=== PATIENT | female | born 1965 | race Two or more races ===

== ENCOUNTER 2017-12-04 10:51 | Emergency (ER) | payer OTHER ==
[~2017-12-04] VITALS: Ht 170.2 cm; Wt 77.1 kg
[~2017-12-04 10:51] MED LIST: KETO10TA2 PO; NORFLEX100MG PO; ZANAFLEX4 MG PO
[2017-12-05] MEDS ORDERED: TENCON 50-3251 EACH (13:36)
== END 2017-12-04 13:16 | disposition home or self-care (01) ==
LOC: ER 10:51
DX: R51 Headache (principal)

== ENCOUNTER 2017-12-05 13:23 | Emergency (ER) | payer OTHER ==
[~2017-12-05] VITALS: Ht 162.6 cm; Wt 71.7 kg
[2017-12-05] MEDS ORDERED: TENCON 50-3251 EACH (13:36)
== END 2017-12-05 16:15 | disposition home or self-care (01) ==
LOC: ER 13:23
DX: G44.209 Tension-type headache, unspecified, not intractable (principal)

== ENCOUNTER 2018-11-24 23:31 | Emergency (ER) | payer OTHER ==
[~2018-11-24] VITALS: Ht 162.6 cm; Wt 77.6 kg
[~2018-11-24 23:31] MED LIST changes: +TENCON 50-3251 EACH
[2018-11-25] MEDS ORDERED: AMOX-CLAV (00:11)
[2018-11-25] MEDS ORDERED: VALTREX (00:12)
[2018-11-25] MEDS ORDERED: NORFLEX100MG PO (01:37)
[2018-11-25] MEDS ORDERED: DICLOFENAC POTA50 MG PO (01:37)
== END 2018-11-25 01:51 | disposition home or self-care (01) ==
LOC: ER 23:31
DX: R20.0 Anesthesia of skin (principal); M62.838 Other muscle spasm

== ENCOUNTER 2019-06-09 08:48 | Outpatient (CLI) | payer OTHER ==
[~2019-06-09 08:48] MED LIST changes: +AMOX-CLAV; +DICLOFENAC POTA50 MG PO; +VALTREX
== END 2019-06-09 09:01 | disposition home or self-care (01) ==
LOC: MRI 08:48
DX: M86.161 Other acute osteomyelitis, right tibia and fibula (principal)
CPT/HCPCS: 73722

== ENCOUNTER 2020-06-14 10:02 | Outpatient (CLI) | payer OTHER | END 2020-06-14 10:23 | disposition home or self-care (01) | LOC: RAD 10:02 | PROVIDERS: ATTEND Physical Medicine & Rehabilitation Pediatric Rehabilitation Medicine | DX: M15.0 Primary generalized (osteo)arthritis (principal); R31.21 Asymptomatic microscopic hematuria; N28.89 Other specified disorders of kidney and ureter | CPT/HCPCS: 73721 ==

== ENCOUNTER 2022-05-15 08:06 | Outpatient (CLI) | payer OTHER | END 2022-05-15 09:26 | disposition home or self-care (01) | LOC: SONOGRAMA 08:06 | PROVIDERS: ATTEND Family Medicine | DX: R31.21 Asymptomatic microscopic hematuria (principal); E04.1 Nontoxic single thyroid nodule; R16.2 Hepatomegaly with splenomegaly, not elsewhere classified ==

== ENCOUNTER 2022-08-26 11:34 | Outpatient (CLI) | payer OTHER | END 2022-08-26 11:42 | disposition home or self-care (01) | LOC: SONOGRAMA 11:34 | PROVIDERS: ATTEND Physical Medicine & Rehabilitation | DX: M25.532 Pain in left wrist (principal); S63.502D Unspecified sprain of left wrist, subsequent encounter; S60.221D Contusion of right hand, subsequent encounter; S60.051D Contusion of right little finger without damage to nail, subsequent encounter ==

== ENCOUNTER 2023-08-31 12:55 | Outpatient (CLI) | payer OTHER | END 2023-08-31 13:09 | disposition home or self-care (01) | LOC: SONOGRAMA 12:55 | PROVIDERS: ATTEND Urology | DX: R31.1 Benign essential microscopic hematuria (principal) ==

== ENCOUNTER 2023-12-15 19:37 | Emergency (ER) | payer OTHER ==
[~2023-12-15] VITALS: Ht 162.6 cm; Wt 74.8 kg
[2023-12-15] MEDS ORDERED: IBERSARTAN (19:47)
[2023-12-15] MEDS ORDERED: CRESTOR40 MG (19:47)
[2023-12-15 19:48] VITALS: BP 115/76; O2SAT 99
[2023-12-15] MEDS ORDERED: KETOROLAC TROMETHAMINE 30 MG VIAL IV ONE (20:15)
[2023-12-15] MEDS ORDERED: CEFTRIAXONE SODIUM 1,000 MG VIAL IV ONE (20:15)
[2023-12-15 20:46] LABS: URINE APPEARANCE Clear; URINE BACTERIA 96.9 uL (0.0-1933); URINE BILIRRUBIN Negative (NEGATIVE); URINE BLOOD Moderate; URINE COLOR Yellow; URINE EPITHELIAL CELLS 4.7 uL (0.0-38.8); URINE GLUCOSE Negative (NEGATIVE); URINE KETONE Negative (NEGATIVE); URINE LEUKOCYTE Moderate; URINE NITRATE Negative; URINE PROTEIN Negative (NEGATIVE); URINE RBC 78.6 uL (0.0-20.8); URINE UROBILINOGEN 0.2 E.U./dl
[2023-12-15 20:46] LABS: HEMATOCRIT 37.6 % (36.0-45.00); HEMOGLOBIN 12.5 g/dL (12.0-15.00); MEAN CORPUSCULAR HEMOGLOBIN 28.3 pg (27.00-32.0); MEAN CORPUSCULAR HGB CONC 33.3 g/dl (32.0-36.0); PLATELET COUNT 219 K/uL (150-450); RED BLOOD COUNT 4.42 M/uL (4.00-6.00); RED CELL DISTRIBUTION WIDTH 13.2 % (11.5-14.5)
[2023-12-15 21:11] LABS: BILIRUBIN TOTAL 0.4 mg/dL (0.3-1.2); CALCIUM 9.3 mg/dL (8.5-10.1); CREATININE SERUM 0.77 mg/dL (0.55-1.02); GFR 76.73; GLOBULINA 3.8 G/DL (2.4-3.5); POTASSIUM 4.46 mEq/L (3.5-5.1); TOTAL PROTEIN 7.8 gm/dL (6.4-8.2)
[2023-12-15] MEDS ORDERED: CIPRO500 MG PO (22:24)
== END 2023-12-15 22:32 | disposition home or self-care (01) ==
LOC: ER 19:38
PROVIDERS: General Practice
DX: N39.0 Urinary tract infection, site not specified (principal); I10 Essential (primary) hypertension

== ENCOUNTER 2023-12-17 12:25 | Outpatient (CLI) | payer OTHER ==
[~2023-12-17 12:25] MED LIST changes: +CIPRO500 MG PO; +CRESTOR40 MG; +IBERSARTAN
== END 2023-12-17 12:47 | disposition home or self-care (01) ==
LOC: SONOGRAMA 12:25
PROVIDERS: ATTEND Physical Medicine & Rehabilitation
DX: M77.12 Lateral epicondylitis, left elbow (principal); M77.02 Medial epicondylitis, left elbow

== ENCOUNTER → 2024-01-12 | Outpatient (CLI) | payer OTHER | END | disposition home or self-care (01) | LOC: SONOGRAMA 07:37 | PROVIDERS: ATTEND Family Medicine | DX: R10.2 Pelvic and perineal pain (principal) ==

== ENCOUNTER 2024-04-06 07:29 | Outpatient (CLI) | payer OTHER | END 2024-04-06 07:35 | disposition home or self-care (01) | LOC: SONOGRAMA 07:29 | PROVIDERS: ATTEND Urology | DX: R31.1 Benign essential microscopic hematuria (principal) ==

== ENCOUNTER 2024-06-13 07:21 | Outpatient (CLI) | payer OTHER | END 2024-06-13 07:35 | disposition home or self-care (01) | LOC: MRI 07:21 | PROVIDERS: ATTEND Specialist | DX: G43.711 Chronic migraine without aura, intractable, with status migrainosus (principal) | CPT/HCPCS: 70551; 72141 ==

== ENCOUNTER 2024-09-22 07:49 | Outpatient (CLI) | payer OTHER | END 2024-09-22 07:56 | disposition home or self-care (01) | LOC: SONOGRAMA 07:49 | PROVIDERS: ATTEND Family Medicine | DX: R07.89 Other chest pain (principal); M25.512 Pain in left shoulder ==

== ENCOUNTER 2024-12-28 07:36 | Outpatient (CLI) | payer OTHER | END 2024-12-28 07:38 | disposition home or self-care (01) | LOC: SONOGRAMA 07:36 | PROVIDERS: ATTEND Internal Medicine Gastroenterology | DX: R16.1 Splenomegaly, not elsewhere classified (principal) ==

== ENCOUNTER 2025-01-08 07:08 | Outpatient (CLI) | payer OTHER | END 2025-01-08 07:16 | disposition home or self-care (01) | LOC: SONOGRAMA 07:08 | PROVIDERS: ATTEND Obstetrics & Gynecology | DX: N95.0 Postmenopausal bleeding (principal); N90.89 Other specified noninflammatory disorders of vulva and perineum ==

== ENCOUNTER 2025-01-30 08:45 | Outpatient (CLI) | payer OTHER | END 2025-01-30 08:50 | disposition home or self-care (01) | LOC: SONOGRAMA 08:45 | PROVIDERS: ATTEND Obstetrics & Gynecology | DX: N92.4 Excessive bleeding in the premenopausal period (principal) ==